=== PATIENT | male | born 1955 | race Two or more races ===

== ENCOUNTER → 2019-12-19 06:11 | Outpatient (CLI) | payer OTHER | END | disposition home or self-care (01) | LOC: LAB 06:11 | PROVIDERS: ATTEND General Practice | DX: E11.65 Type 2 diabetes mellitus with hyperglycemia (principal); Z00.8 Encounter for other general examination; I10 Essential (primary) hypertension; Z12.11 Encounter for screening for malignant neoplasm of colon; Z12.5 Encounter for screening for malignant neoplasm of prostate ==

== ENCOUNTER → 2019-12-19 | Outpatient (CLI) | payer OTHER | END | disposition home or self-care (01) | LOC: SONOGRAMA 10:17 → MAMO-SONO 14:45 | PROVIDERS: ATTEND General Practice | DX: R22.1 Localized swelling, mass and lump, neck (principal) ==